=== PATIENT | male | born 1945 | race Caucasian/White ===

== ENCOUNTER 2017-12-27 08:53 | Day surgery (SDC) | payer OTHER ==
[2017-12-27] MEDS ORDERED: PROPOFOL 20 ML (10:16)
== END 2017-12-27 12:34 | disposition home or self-care (01) ==
LOC: GIL 08:53
DX: K29.30 Chronic superficial gastritis without bleeding (principal); K44.9 Diaphragmatic hernia without obstruction or gangrene; K21.9 Gastro-esophageal reflux disease without esophagitis
CPT/HCPCS: 43239; 87081; 88305; 88312